=== PATIENT | female | born 1990 | race Caucasian/White ===

== ENCOUNTER 2017-03-12 11:38 | Emergency (ER) | payer MEDICAID, OTHER ==
[2017-03-12 11:56] VITALS: BP 142/91; PULSE 87; RESP 18; TEMP 98; O2SAT 98
[2017-03-12] MEDS ORDERED: DiphenhydrAMINE 50 mg/ml Inj IM STA (12:13)
--- NOTE | 2017-03-12 12:16 | ED PDOC ---
HPI: Allergic Reaction Time Seen by Provider: 03/12/17 12:04 Chief Complaint (Nursing): Abnormal Skin Integrity Chief Complaint (Provider): Skin rash History Per: Patient History/Exam Limitations: no limitations Onset/Duration Of Symptoms: Intermittent Episodes Current Symptoms Are (Timing): Still Present Possible Cause: Unknown Associated Symptoms: Skin Rash, Itching Home/EMS Treatment: None Additional Complaint(s): The patient is a 27yo female, presents to the ED for evaluation of a pruritic, erythematous rash throughout her body, but greater in her extremities. Patient reports she gets these rashes 1-2 times per year ever since she was 5 years old. She states she has never seen a specialist to determine the etiology of her symtpoms; she states she typically visits the ED and is given IM steroids and Benadryl, after which her symptoms resolve in a couple days. The patient denies any history of an anaphylactic shock. Shew denies any fever, shortness of breath, throat swelling. The patient offers no additional medical complaints. Past Medical History Reviewed: Historical Data, Nursing Documentation, Vital Signs Vital Signs: Last Vital Signs Temp 98 F 03/12/17 11:53 Pulse 87 03/12/17 11:53 Resp 18 03/12/17 11:53 BP 142/91 H 03/12/17 11:53 Pulse Ox 98 03/12/17 11:53 - Medical History PMH: No Chronic Diseases - Surgical History Surgical History: No Surg Hx - Family History Family History: States: Unknown Family Hx - Social History Current smoker - smoking cessation education provided: No Alcohol: None Drugs: Denies - Home Medications Home Medications: Ambulatory Orders Medication Instructions Recorded DiphenhydrAMINE [Benadryl] 1 cap PO Q6 PRN #30 cap 03/12/17 Methylprednisolone [Medrol Dose 4 mg PO DAILY #21 mg 03/12/17 Pack (21 tabs)] - Allergies Allergies/Adverse Reactions: Allergies Allergy/AdvReac Type Severity Reaction Status Date / Time No Known Allergies Allergy Verified 06/20/14 05:08 Review of Systems ROS Statement: Except As Marked, All Systems Reviewed And Found Negative Constitutional: Negative for: Fever ENT: Negative for: Throat Swelling Respiratory: Negative for: Shortness of Breath Skin: Positive for: Rash Physical Exam - Reviewed Nursing Documentation Reviewed: Yes Vital Signs Reviewed: Yes - Physical Exam Appears: Positive for: Non-toxic, No Acute Distress Skin: Positive for: Warm, Dry, Rash (skin with scattered urticarial rash with blanching) ENT: Positive for: Normal ENT Inspection. Negative for: Tonsillar Exudate, Tonsillar Swelling, Other (uvular swelling) Cardiovascular/Chest: Positive for: Regular Rate, Rhythm Respiratory: Positive for: Normal Breath Sounds. Negative for: Accessory Muscle Use, Respiratory Distress Neurologic/Psych: Positive for: Alert, Oriented. Negative for: Motor/Sensory Deficits - ECG O2 Sat by Pulse Oximetry: 98 (RA) Pulse Ox Interpretation: Normal - Progress ED Course And Treament: Time: 1208 Impression: Urticaria Plan: -- Benadryl 50 mg IM -- Solumedrol 125 mg IM Reassess Time: 1230 Patient informed to follow up with a specialist regarding her allergies. The patient is stable for d/c home; patient informed to return to ED immediately if symptoms worsen or new symptoms arise. Scribe Attestation: Documented by Haven Romero acting as a scribe for ABDIAS Dozier Provider Attestation: All medical record entries made by the Scribe were at my direction and personally dictated by me. I have reviewed the chart and agree that the record accurately reflects my personal performance of the history, physical exam, medical decision making, and the department course for this patient. I have also personally directed, reviewed, and agree with the discharge instructions and disposition. 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
[2017-03-12] MEDS ORDERED: DiphenhydrAMINE 50 mg/ml Inj ONE (12:18)
== END 2017-03-12 12:43 | disposition home or self-care (01) ==
LOC: H.ER 11:38
DX: L29.9 Pruritus, unspecified (principal); L50.9 Urticaria, unspecified
CPT/HCPCS: 96372; 99283; J1200; J2930

== ENCOUNTER 2017-04-10 12:26 | Emergency (ER) | payer MEDICAID ==
[2017-04-10 12:39] VITALS: BP 125/87; PULSE 85; RESP 16; TEMP 98; O2SAT 99
--- NOTE | 2017-04-10 12:55 | ED PDOC ---
HPI: CCC, URI, Sore Throat Time Seen by Provider: 04/10/17 12:33 Chief Complaint (Nursing): ENT Problem Chief Complaint (Provider): Sore throat History Per: Patient Additional Complaint(s): 27 yo female, PMH of Anxiety, presents to ED with complaints of swollen lymph glands and tonsil pain since Sunday. Taking Day/NyQuil with little relief. Past Medical History Reviewed: Nursing Documentation, Vital Signs Vital Signs: Last Vital Signs Temp 98 F 04/10/17 12:36 Pulse 85 04/10/17 12:36 Resp 16 04/10/17 12:36 BP 125/87 04/10/17 12:36 Pulse Ox 99 04/10/17 12:55 - Medical History PMH: Anxiety - Surgical History Surgical History: No Surg Hx - Family History Family History: States: Unknown Family Hx - Living Arrangements Living Arrangements: With Family - Social History Current smoker - smoking cessation education provided: No Alcohol: Social Drugs: Denies - Home Medications Home Medications: Ambulatory Orders Medication Instructions Recorded DiphenhydrAMINE [Benadryl] 1 cap PO Q6 PRN #30 cap 03/12/17 Methylprednisolone [Medrol Dose 4 mg PO DAILY #21 mg 03/12/17 Pack (21 tabs)] Ibuprofen [Motrin] 600 mg PO Q6 #20 tab 04/10/17 Methylprednisolone [Medrol Dose 4 mg PO DAILY #21 mg 04/10/17 Pack (21 tabs)] - Allergies Allergies/Adverse Reactions: Allergies Allergy/AdvReac Type Severity Reaction Status Date / Time No Known Allergies Allergy Verified 06/20/14 05:08 Review of Systems ROS Statement: Except As Marked, All Systems Reviewed And Found Negative ENT: Positive for: Throat Pain Physical Exam - Reviewed Nursing Documentation Reviewed: Yes Vital Signs Reviewed: Yes - Physical Exam Appears: Positive for: Well, Non-toxic, No Acute Distress Head Exam: Positive for: ATRAUMATIC, NORMAL INSPECTION, NORMOCEPHALIC Skin: Positive for: Normal Color, Warm, DRY Eye Exam: Positive for: EOMI, Normal appearance, PERRL ENT: Positive for: TM Is/Are (WNL), Pharyngeal Erythema. Negative for: Tonsillar Exudate, Tonsillar Swelling Neck: Positive for: Normal, Painless ROM Cardiovascular/Chest: Positive for: Regular Rate, Rhythm Respiratory: Positive for: CNT, Normal Breath Sounds Gastrointestinal/Abdominal: Positive for: Normal Exam, Bowel Sounds, Soft Back: Positive for: Normal Inspection Extremity: Positive for: Normal ROM Neurologic/Psych: Positive for: Alert, Oriented - ECG O2 Sat by Pulse Oximetry: 99 Medical Decision Making Medical Decision Making: Strep (-) medicated with Motrin PO Disposition - Clinical Impression Clinical Impression: Pharyngitis - Patient ED Disposition Is Patient to be Admitted: No - Disposition Disposition: Routine/Home Disposition Time: 14:17 Condition: STABLE Prescriptions: Ibuprofen [Motrin] 600 mg PO Q6 #20 tab Methylprednisolone [Medrol Dose Pack (21 tabs)] 4 mg PO DAILY #21 mg Instructions: Pharyngitis (ED) Forms: [employer] (Georgian), [facility] ED School/Work Excuse
== END 2017-04-10 14:00 | disposition home or self-care (01) ==
LOC: H.ER 12:26
DX: J02.9 Acute pharyngitis, unspecified (principal)

== ENCOUNTER 2018-01-24 16:18 | Emergency (ER) | payer MEDICAID ==
[2018-01-24 16:27] VITALS: BP 136/61; PULSE 79; RESP 18; TEMP 98.3; O2SAT 97
--- NOTE | 2018-01-24 16:42 | ED PDOC ---
Upper Extremity Pain/Injury Time Seen by Provider: 01/24/18 16:24 Chief Complaint (Nursing): Upper Extremity Problem/Injury Chief Complaint (Provider): wrist pain/paronychia History Per: Patient Additional Complaint(s): 28 yo female, no PMH, presents to ED c/o left wrist injury s/p guarding with same hand on fall, stepped on child's toy at home, lost balance; denies LOC; also c/o 3rd digit of left hand redness/swelling after pulling cuticle. +mild left wrist swelling. Past Medical History Reviewed: Nursing Documentation, Vital Signs Vital Signs: Last Vital Signs Temp 98.3 F 01/24/18 16:21 Pulse 79 01/24/18 16:21 Resp 18 01/24/18 16:21 BP 136/61 01/24/18 16:21 Pulse Ox 97 01/24/18 16:21 - Medical History PMH: Anxiety - Family History Family History: States: Unknown Family Hx - Home Medications Home Medications: Ambulatory Orders Medication Instructions Recorded DiphenhydrAMINE [Benadryl] 1 cap PO Q6 PRN #30 cap 03/12/17 Methylprednisolone [Medrol Dose 4 mg PO DAILY #21 mg 03/12/17 Pack (21 tabs)] Ibuprofen [Motrin] 600 mg PO Q6 #20 tab 04/10/17 Methylprednisolone [Medrol Dose 4 mg PO DAILY #21 mg 04/10/17 Pack (21 tabs)] Cephalexin [cephalexin] 500 mg PO BID #14 cap 01/24/18 Ibuprofen [Motrin] 600 mg PO Q6 #20 tab 01/24/18 - Allergies Allergies/Adverse Reactions: Allergies Allergy/AdvReac Type Severity Reaction Status Date / Time No Known Allergies Allergy Verified 01/24/18 16:27 Review of Systems ROS Statement: Except As Marked, All Systems Reviewed And Found Negative Musculoskeletal: Positive for: Other (wrist pain) Skin: Positive for: Other (redness and swelling) Physical Exam - Reviewed Nursing Documentation Reviewed: Yes Vital Signs Reviewed: Yes - Physical Exam Appears: Positive for: Well, Non-toxic, No Acute Distress Head Exam: Positive for: ATRAUMATIC, NORMAL INSPECTION, NORMOCEPHALIC Skin: Positive for: Normal Color, Warm, DRY Eye Exam: Positive for: EOMI, Normal appearance, PERRL ENT: Positive for: Normal ENT Inspection Neck: Positive for: Normal, Painless ROM Cardiovascular/Chest: Positive for: Regular Rate, Rhythm Respiratory: Positive for: CNT, Normal Breath Sounds Gastrointestinal/Abdominal: Positive for: Normal Exam, Soft Back: Positive for: Normal Inspection Extremity: Positive for: Normal ROM, Tenderness, Other (left 3rd digit: erythema and edema surrounding cuticle). Negative for: Deformity, Swelling Neurologic/Psych: Positive for: Alert, Oriented - ECG O2 Sat by Pulse Oximetry: 97 Medical Decision Making Medical Decision Making: Time: 16:41 Initial Plan: --Left hand XR --Left wrist XR --Motrin 600 mg PO 17:28 Hand XR FINDINGS: BONES: No acute fracture. JOINTS: Unremarkable. SOFT TISSUES: Normal. OTHER FINDINGS: None. IMPRESSION: No demonstrated fracture or dislocation. 17:29 Wrist XR FINDINGS: BONES: No acute fracture. JOINTS: Unremarkable. SOFT TISSUES: Normal. OTHER FINDINGS: None. IMPRESSION: No demonstrated fracture or dislocation. Paronychia drained by designer/writer Procedures - Incision and Drainage Blade Size: 11 I & D Procedure: betadine prep Progress: drained purulent material and dressing applied Disposition - Clinical Impression Clinical Impression: Wrist sprain, Paronychia - Patient ED Disposition Is Patient to be Admitted: No - Disposition Disposition: Routine/Home Disposition Time: 17:51 Condition: STABLE Prescriptions: Cephalexin [cephalexin] 500 mg PO BID #14 cap Ibuprofen [Motrin] 600 mg PO Q6 #20 tab Instructions: Wrist Sprain (DC), Paronychia (DC) Forms: [employer] (Omani)
--- NOTE | 2018-01-24 17:30 | RAD ---
PROCEDURE: Left Hand Radiographs. HISTORY: pain s/p fll COMPARISON: None. FINDINGS: BONES: No acute fracture. JOINTS: Unremarkable. SOFT TISSUES: Normal. OTHER FINDINGS: None. IMPRESSION: No demonstrated fracture or dislocation.
--- NOTE | 2018-01-24 17:30 | RAD ---
Date of service: 01/24/2018 PROCEDURE: Left Wrist Radiographs. HISTORY: pain s/p fall COMPARISON: None. FINDINGS: BONES: No acute fracture. JOINTS: Unremarkable. SOFT TISSUES: Normal. OTHER FINDINGS: None. IMPRESSION: No demonstrated fracture or dislocation.
== END 2018-01-24 18:45 | disposition home or self-care (01) ==
LOC: H.ER 16:18
DX: S63.501A Unspecified sprain of right wrist, initial encounter (principal); W19.XXXA Unspecified fall, initial encounter; Y92.89 Other specified places as the place of occurrence of the external cause; L03.012 Cellulitis of left finger; F41.9 Anxiety disorder, unspecified

== ENCOUNTER 2018-03-02 17:40 | Emergency (ER) | payer MEDICAID ==
[2018-03-02 17:52] VITALS: RESP 18; TEMP 98; O2SAT 98
[2018-03-02] MEDS ORDERED: Sodium Chloride 0.9% 1,000 ML IV STA (18:33)
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
[2018-03-02 19:08] LABS: BASO # 0.1 K/uL (0.0-0.2); BASO % 0.9 % (0.0-2.0); EOS # 0.2 K/uL (0.0-0.7); EOS % 1.6 % (0.0-4.0); HEMOGLOBIN 14.1 g/dL (12.0-16.0); LYMPH # 2.2 K/uL (1.0-4.3); MEAN CELL VOLUME 93.5 fl (81.0-99.0); MEAN CORPUSCULAR HEMOGLOBIN 31.7 pg (27.0-31.0); MEAN CORPUSCULAR HGB CONC 33.9 g/dL (33.0-37.0); MEAN PLATELET VOLUME 8.2 fl (7.2-11.7); MONO # 0.6 K/uL (0.0-0.8); MONO % 5.4 % (0.0-10.0); NEUT # 7.5 K/uL (1.8-7.0); NEUT % 71.1 % (50.0-75.0); RBC 4.44 Mil/uL (3.80-5.20); RED CELL DISTRIBUTION WIDTH 12.9 % (11.5-14.5); WHITE BLOOD COUNT 10.6 K/uL (4.8-10.8)
[2018-03-02 19:10] LABS: SQUAMOUS EPITHIAL 4 /hpf (0-5); URINE BACTERIA RARE (<OCC); URINE BILIRUBIN NEGATIVE (NEGATIVE); URINE BLOOD SMALL (NEGATIVE); URINE CLARITY SLIGHTY-CLOUDY (Clear); URINE COLOR STRAW (YELLOW); URINE GLUCOSE (UA) NEG (Normal); URINE LEUKOCYTE ESTERASE NEG Leu/uL (Negative); URINE PROTEIN NEGATIVE (NEGATIVE); URINE UROBILINOGEN 0.2-1.0 mg/dL (0.2-1.0)
[2018-03-02 19:18] LABS: ALB/GLOB RATIO 1.5 (1.0-2.1); ALBUMIN 4.8 g/dL (3.5-5.0); ALT/SGPT 208 U/L (9-52); AST/SGOT 165 U/L (14-36); BLOOD UREA NITROGEN 10 mg/dl (7-17); GFR NON-AFRICAN AMERICAN > 60
[2018-03-02 19:27] LABS: BENZODIAZEPINES, UR NEGATIVE (NEGATIVE)
[2018-03-02 19:28] LABS: BARBITURATES, UR NEGATIVE (NEGATIVE); OPIATES, UR NEGATIVE (NEGATIVE); PHENCYCLIDINE, UR NEGATIVE (NEGATIVE)
[2018-03-02 20:06] VITALS: BP 169/92; PULSE 67
--- NOTE | 2018-03-03 17:44 | CARD ---
APPROVED REPORT Date of service: 03/02/2018 EKG Measurement Heart [id number] <Conclusion> Normal sinus rhythm Normal ECG
== END 2018-03-02 20:15 | disposition home or self-care (01) ==
LOC: H.ER 17:40
DX: R42 Dizziness and giddiness (principal); M62.81 Muscle weakness (generalized); F41.9 Anxiety disorder, unspecified
CPT/HCPCS: 80053; 80320; 80324; 80345; 80346; 80349; 80353; 80358; 80361; 81003; 81025; 83992; 84443; 84484; 85025; 93005; 96360; 96361; 99283; J2405; J7030

== ENCOUNTER 2018-07-17 11:35 | Emergency (ER) | payer MEDICAID ==
[2018-07-17 12:07] VITALS: RESP 16; O2SAT 98
--- NOTE | 2018-07-17 12:42 | ED PDOC ---
HPI: General Adult Time Seen by Provider: 07/17/18 12:29 Chief Complaint (Nursing): Anxiety Chief Complaint (Provider): Anxiety History Per: Patient History/Exam Limitations: no limitations Onset/Duration Of Symptoms: Hrs Current Symptoms Are (Timing): Still Present Additional Complaint(s): Daren Meyers is a 28 year old female with a past medical history of anxiety who is presenting to the ED for evaluation of a panic attack onset this morning on her way to school. Patient states that she was on her way to school for a lecture about mental illness which caused her to have a panic attack for which she took 1 mg of Xanax. She adds that the panic attack overpowered the medications which did not help. She reports the feeling of heart racing but denies any other medical complaints. Patient states that she sees Brianne, a therapist and a psychiatrist Dr. West at [facility]. Patient states that she is prescribed 1-2 mg of Xanax a day. PMD: Dr. Rojas Past Medical History Reviewed: Historical Data, Nursing Documentation, Vital Signs Vital Signs: Last Vital Signs Temp 98.4 F 07/17/18 12:04 Pulse 83 07/17/18 12:04 Resp 16 07/17/18 12:04 BP 143/89 07/17/18 12:04 Pulse Ox 98 07/17/18 12:04 - Medical History PMH: Anxiety - Surgical History Surgical History: - Family History Family History: States: Unknown Family Hx - Social History Current smoker - smoking cessation education provided: No Alcohol: None Drugs: Denies - Home Medications Home Medications: Ambulatory Orders Medication Instructions Recorded DiphenhydrAMINE [Benadryl] 1 cap PO Q6 PRN #30 cap 03/12/17 Methylprednisolone [Medrol Dose 4 mg PO DAILY #21 mg 03/12/17 Pack (21 tabs)] Ibuprofen [Motrin] 600 mg PO Q6 #20 tab 04/10/17 Methylprednisolone [Medrol Dose 4 mg PO DAILY #21 mg 04/10/17 Pack (21 tabs)] Cephalexin [cephalexin] 500 mg PO BID #14 cap 01/24/18 Ibuprofen [Motrin] 600 mg PO Q6 #20 tab 01/24/18 - Allergies Allergies/Adverse Reactions: Allergies Allergy/AdvReac Type Severity Reaction Status Date / Time No Known Allergies Allergy Verified 07/17/18 12:02 Review of Systems ROS Statement: Except As Marked, All Systems Reviewed And Found Negative Cardiovascular: Positive for: Other (heart racing) Psych: Positive for: Anxiety Physical Exam - Reviewed Nursing Documentation Reviewed: Yes Vital Signs Reviewed: Yes - Physical Exam Appears: Positive for: Non-toxic, No Acute Distress Head Exam: Positive for: ATRAUMATIC, NORMAL INSPECTION, NORMOCEPHALIC Skin: Positive for: Normal Color, Warm, DRY Eye Exam: Positive for: Normal appearance Cardiovascular/Chest: Positive for: Regular Rate, Rhythm. Negative for: Murmur Respiratory: Positive for: Normal Breath Sounds. Negative for: Respiratory Distress Extremity: Positive for: Normal ROM. Negative for: Deformity, Swelling Neurologic/Psych: Positive for: Alert, Oriented. Negative for: Motor/Sensory Deficits - ECG O2 Sat by Pulse Oximetry: 98 (RA) Pulse Ox Interpretation: Normal Medical Decision Making Medical Decision Making: Time: 12:29 Plan: --Xanax 1 mg PO Patient states that she is looking to switch psychiatrists and asked for a list of referrals as well as a school note, both of which she will be provided. Scribe Attestation: Documented by, Zenaida Murrieta acting as a scribe for Mickey Mei PA-C. Provider Scribe Attestation: All medical record entries made by the Scribe were at my direction and personally dictated by me. I have reviewed the chart and agree that the record accurately reflects my personal performance of the history, physical exam, medical decision making, and the department course for this patient. I have also personally directed, reviewed, and agree with the discharge instructions and disposition. Disposition - Clinical Impression Clinical Impression: Anxiety attack - Patient ED Disposition Is Patient to be Admitted: No Doctor Will See Patient In The: Office Counseled Patient/Family Regarding: Diagnosis, Need For Followup - Disposition Disposition: Routine/Home Disposition Time: 14:00 Condition: STABLE Instructions: Anxiety, Adult (DC) Forms: [employer] (Mongolian), [facility] ED School/Work Excuse
--- NOTE | 2018-07-17 12:45 | ED PDOC ---
- ECG O2 Sat by Pulse Oximetry: 98 Medical Decision Making Medical Decision Making: Document entered in Error Disposition - Clinical Impression Clinical Impression: Anxiety attack - POA Present On Arrival: None - Disposition Disposition: Routine/Home Disposition Time: 14:00 Condition: STABLE Instructions: Anxiety, Adult (DC) Forms: [employer] (Maori), [facility] ED School/Work Excuse
[2018-07-17 14:04] VITALS: BP 132/70; PULSE 80; TEMP 98
== END 2018-07-17 14:03 | disposition home or self-care (01) ==
LOC: H.ER 11:35
DX: F41.9 Anxiety disorder, unspecified (principal)

== ENCOUNTER 2018-09-09 15:31 | Emergency (ER) | payer MEDICAID ==
[2018-09-09 16:19] VITALS: BP 136/81; PULSE 75; RESP 16; TEMP 98.4; O2SAT 99
--- NOTE | 2018-09-09 17:13 | ED PDOC ---
HPI: CCC, URI, Sore Throat Time Seen by Provider: 09/09/18 17:00 Chief Complaint (Nursing): ENT Problem Chief Complaint (Provider): ENT Problem History Per: Patient History/Exam Limitations: no limitations Onset/Duration Of Symptoms: Days Current Symptoms Are (Timing): Still Present Location Of Pain: Throat Additional Complaint(s): 28 y/o female with no significant PMHx presents to the ED for evaluation of throat pain, onset 5 days ago. Patient notes of feeling like her tonsils are swollen since Sunday. Patient notes of having a tactile fever and myalgia at onset but denies any at present. Patient additionally denies a cough. PMD: none provided Past Medical History Reviewed: Historical Data, Nursing Documentation, Vital Signs Vital Signs: Last Vital Signs Temp 98.4 F 09/09/18 16:18 Pulse 75 09/09/18 16:18 Resp 16 09/09/18 16:18 BP 136/81 09/09/18 16:18 Pulse Ox 99 09/09/18 16:18 - Medical History PMH: Anxiety - Surgical History Surgical History: - Family History Family History: States: Unknown Family Hx - Home Medications Home Medications: Ambulatory Orders Medication Instructions Recorded DiphenhydrAMINE [Benadryl] 1 cap PO Q6 PRN #30 cap 03/12/17 Methylprednisolone [Medrol Dose 4 mg PO DAILY #21 mg 03/12/17 Pack (21 tabs)] Ibuprofen [Motrin] 600 mg PO Q6 #20 tab 04/10/17 Methylprednisolone [Medrol Dose 4 mg PO DAILY #21 mg 04/10/17 Pack (21 tabs)] Cephalexin [cephalexin] 500 mg PO BID #14 cap 01/24/18 Ibuprofen [Motrin] 600 mg PO Q6 #20 tab 01/24/18 Amoxicillin/Clavulanate [Augmentin 1 tab PO BID #20 tab 09/09/18 875 MG-125 MG] Lidocaine 2% Viscous 5 ml MM QID #100 ml 09/09/18 Methylprednisolone [Medrol Dose 4 mg PO ASDIR #21 mg 09/09/18 Pack (21 tabs)] - Allergies Allergies/Adverse Reactions: Allergies Allergy/AdvReac Type Severity Reaction Status Date / Time No Known Allergies Allergy Verified 07/17/18 12:02 Review of Systems ROS Statement: Except As Marked, All Systems Reviewed And Found Negative Constitutional: Positive for: Fever (tactile fever (at onset)), Other (MYALGIA (at onset)) ENT: Positive for: Throat Pain Physical Exam - Reviewed Nursing Documentation Reviewed: Yes Vital Signs Reviewed: Yes - Physical Exam Appears: Positive for: No Acute Distress Head Exam: Positive for: ATRAUMATIC Skin: Positive for: Normal Color Eye Exam: Positive for: Normal appearance ENT: Positive for: Pharyngeal Erythema (bilaterally), Tonsillar Swelling (2+/2+ bilaterally), Other (Mild uvula centerline and edematous. Airways open and patent. No abscess and trismus) Neck: Positive for: Normal Cardiovascular/Chest: Positive for: Regular Rate, Rhythm. Negative for: Murmur Respiratory: Positive for: Normal Breath Sounds. Negative for: Respiratory Distress Extremity: Positive for: Normal ROM Lymphatic: Positive for: Adenopathy (+1/+1 bilateral ) Neurological/Psych: Positive for: Awake, Alert, Oriented - ECG O2 Sat by Pulse Oximetry: 99 (RA) Pulse Ox Interpretation: Normal Medical Decision Making Medical Decision Making: I: R/O Strep vs Tonsillitis/Pharangitis P: Strep and Flu swab Meds: lidocaine 2% viscous Results of screens are negative; discussed with patient desire to cover bases, and will prescribe as follows augmentin lidocaine viscos medrol dose pack Pt is stable for discharge Scribe Attestation: Documented by Brooks Bustillos, acting as a scribe Costa Mei PA-C. Provider Scribe Attestation: All medical record entries made by the Scribe were at my direction and personally dictated by me. I have reviewed the chart and agree that the record accurately reflects my personal performance of the history, physical exam, medical decision making, and the department course for this patient. I have also personally directed, reviewed, and agree with the discharge instructions and disposition. Disposition - Clinical Impression Clinical Impression: Tonsillitis, Pharyngitis - Patient ED Disposition Is Patient to be Admitted: No Counseled Patient/Family Regarding: Studies Performed, Diagnosis, Need For Followup, Rx Given - Disposition Referrals: [facility] [Outside] Disposition Time: 19:07 Condition: STABLE Prescriptions: Amoxicillin/Clavulanate [Augmentin 875 MG-125 MG] 1 tab PO BID #20 tab Lidocaine 2% Viscous 5 ml MM QID #100 ml Methylprednisolone [Medrol Dose Pack (21 tabs)] 4 mg PO ASDIR #21 mg Instructions: Sore Throat, Adult (DC), Sore Throat in Adults, Viral Pharyngitis Forms: [employer] (Ethiopian)
== END 2018-09-09 19:12 | disposition home or self-care (01) ==
LOC: H.ER 15:31
DX: J03.90 Acute tonsillitis, unspecified (principal); J02.9 Acute pharyngitis, unspecified